=== PATIENT | female | born 1970 | race Caucasian/White ===

== ENCOUNTER 2016-11-15 01:55 | Emergency (ER) | payer MEDICAID ==
[~2016-11-15] VITALS: Ht 149.9 cm; Wt 62.6 kg
[2016-11-15 01:58] VITALS: BP 126/61
--- NOTE | 2016-11-15 02:13 | NUR ---
PT TAKEN TO BED 7
--- NOTE | 2016-11-15 02:15 | NUR ---
46 Y/O F W/C/O POSSIBLE REACTION TO MOX-CLAV OR AUGMENTIN ANTIBIOTICS. MED PRESCROBED AT [facility] AFTER HAVING SURGERY FOR BONE IMPLANT TO UPPER GUMS. PT STATES HAVING ABD PAIN, DIARRHEA AND GENERAL WEAKNESS WITH SOB AFTER TAKING THE FIRST DOSE OF ANTIBITICS. VSS, O2 SAT 98%, DENIES ANY CHEST PAIN OR SOB AT THE MOMENT.
--- NOTE | 2016-11-15 02:50 | NUR ---
Dr. Krause evaluating patient at bedside.
[2016-11-15] MEDS ORDERED: AMOXICILLIN 500 MG CAP PO ONE (03:00)
[2016-11-15] MEDS ORDERED: KETOROLAC 60 MG/2 ML VIAL IM ONE (03:00)
--- NOTE | 2016-11-15 03:35 | NUR ---
PT RESTING IN BED, NO S/S OF DISTRESS NOTED AT THE MOMENT.
[2016-11-15 04:00] VITALS: BP 119/68
--- NOTE | 2016-11-15 04:00 | NUR ---
Patient discharged with v/s stable. Written and verbal after care instructions given and explained. Patient alert, oriented and verbalized understanding of instructions. Ambulatory with steady gait. All questions addressed prior to discharge. ID band removed. Patient advised to follow up with PMD OR RETURN BACK TO ER IF CODITION WORSENS. Rx of MOTRIN, AMOXICILLIN, AND TRAMADOL given. Patient educated on indication of medication including possible reaction and side effects. Opportunity to ask questions provided and answered.
== END 2016-11-15 04:00 | disposition home or self-care (01) ==
LOC: MED 01:55
DX: G89.18 Other acute postprocedural pain (principal); R03.0 Elevated blood-pressure reading, without diagnosis of hypertension; Z98.818 Other dental procedure status; Z88.5 Allergy status to narcotic agent
CPT/HCPCS: 96372; 99283; J1885